=== PATIENT | female | born 1935 | race Caucasian/White ===

== ENCOUNTER 2016-11-24 16:24 | Observation (INO) | payer MEDICARE, OTHER ==
[~2016-11-24] VITALS: Ht 177.8 cm; Wt 64.2 kg
--- NOTE | ~2016-11-24 | CR72 ---
[facility] A Service of [facility] RADIOLOGY TEXT RESULTS PATIENT: SARAH KENNEDY LOCATION: [facility] 323- : 36 UNIT #: [id number] AGE: [address]: Adelso Milan MD SEX: F ORDER DR: [id number] [facility] [address] [place], [place] [address] [id number] I MR#: [id number] Acc #: [id number] NAME: SARAH KENNEDY : 1935 SEX: F STUDY DATE/TIME: 11/24/2016 17:52 UNIT: [address] ROOM: [facility] STUDY DESCRIPTION: CR Chest Single View Portable Attending Physician: Adelso Milan M.D. Ordering Physician: Nicola Schaefer M.D. Primary Care Physician: Rhonda Ivy M.D. MEDICAL IMAGING REPORT This report is preliminary unless electronic signature is present EXAM Portable chest HISTORY Chest pain today. FINDINGS Cardiac size near the upper limits of normal. Normal pulmonary vascularity. Mild right upper thoracic curve. Small calcified left hilar nodes and calcified granulomas in the left upper lung. Mild linear atelectasis or scarring in both bases. No airspace infiltrates. No pleural effusions. IMPRESSION No acute findings. Dictated by... Chaim Mendez M.D. THIS IS AN ELECTRONICALLY VERIFIED REPORT Chaim Mendez M.D. at 11/25/2016 11:42 PM DFL/df TD: 11/25/2016 08:06 JOB #: [id number] MEDICAL IMAGING REPORT Page 1 of 1 COPY
--- NOTE | ~2016-11-24 | TH ---
Unit #: [id number] #: [id number] Patient: SARAH KENNEDY [id number] [address] [address] [id number] I MR#: [id number] NAME: SARAH KENNEDY : 1935 SEX: F STUDY DATE/TIME: 11/25/2016 UNIT: C3A PCU ROOM: 323 STUDY DESCRIPTION: Lexiscan stress test - Nuclear Attending Physician: Adelso Milan M.D. Primary Care Physician: Rhonda Ivy M.D. CARDIOLOGY REPORT PROCEDURE PERFORMED Lexiscan Cardiolite stress test - Nuclear portion. PROCEDURE Using technetium 99m-labeled Cardiolite, rest and stress SPECT images were obtained. Multiple SPECT images were obtained in various views, including horizontal and vertical long axis and short axis views of the left ventricle. Images were obtained by gated SPECT method. The patient was administered 9.74 mCi of Cardiolite at rest. The patient was administered 29.4 mCi of Cardiolite after Lexiscan infusion was completed. On the stress images, there is normal perfusion noted. The rest images show normal perfusion. Comparing the rest and stress images, there is no stress-induced ischemia noted. The left ventricular ejection fraction is calculated to be 59%. There is no focal wall motion abnormality seen. CONCLUSION 1. No stress-induced ischemia noted. 2. The left ventricular ejection fraction is calculated to be 59%. 3. There is no focal wall motion abnormality seen. 4. Normal Lexiscan Cardiolite stress test. Dictated by... Molly Cedillo/fabi TD: 11/25/2016 16:04 JOB #: [id number] CARDIOLOGY REPORT Page 1 of 1 X Lindsey Samuels MD <ELECTRONICALLY SIGNED> 01/01/17 1524 CARDIOLOGY REPORT
--- NOTE | ~2016-11-24 | DS ---
Unit #: [id number] #: [id number] Patient: SARAH KENNEDY [id number] [address] [place], [place] [address] [id number] I MR#: [id number] NAME: SARAH KENNEDY ROOM: 323 Age: 81 Sex: F Admission Date: 11/24/2016 : 1935 Discharge Date: 11/25/2016 Attending Physician: Adelso Milan M.D. Primary Care Physician: Rhonda Ivy M.D. DISCHARGE SUMMARY SHORT-STAY SUMMARY HISTORY OF PRESENT ILLNESS This is an 81-year-old pleasant, elderly female who typically follows with Dr. Hurtado with [facility]. She reports a past medical history of hypertension, hyperlipidemia, and reportedly leaky valve, as well as some chronic back pain. The patient presented to the emergency room with complaints of left-sided chest pressure. She states she was in her typical state of health until yesterday afternoon about 3:30. She said she was sleepy. She got up and went to her bedroom but could not go to sleep; therefore, she got up to go read. At that time, she started to develop left-sided chest pressure she described as heaviness and pressure. She also states her vision became fuzzy, and she just did not feel right. She reports it was also associated with diaphoresis but denied any radiation of the pain to the arm, jaw, or down the arm and denied any nausea or vomiting. She thinks the episode lasted anywhere from 15 to 20 minutes, but the patient is unclear exactly on the timeframe. She has had no further episodes since. On arrival to the emergency room, EKG was performed which showed normal sinus rhythm, rate of 68 beats per minute, occasional PVCs, minimal voltage criteria for LVH, and QTc interval of 463 msec, with no acute ischemic changes noted. Point of care troponins have been negative. Chest x-ray was also performed which showed no active disease. At present, she is chest pain free. She denies any further complaints of heaviness or tightness. She is resting in bed comfortably. Her electrolytes have been reviewed and are within normal limits. Please note, the patient does state that she has undergone cardiac catheterization in the past, but I currently have no records available for review. She was told reportedly her prior caths were normal. PAST MEDICAL HISTORY 1. Hypertension. 2. Hyperlipidemia. 3. Questionable leaky valve per patient. 4. Chronic back pain. 5. Gastroesophageal reflux disease. PAST SURGICAL HISTORY 1. Tonsillectomy. 2. Prior heart cath, records currently not available for review. 3. Hysterectomy. Unit #: [id number] #: [id number] Patient: SARAH KENNEDY HOME MEDICATIONS 1. Metoprolol 25 mg p.o. daily. 2. Gabapentin 300 mg p.o. t.i.d. 3. Pantoprazole 40 mg p.o. daily. 4. Simvastatin 40 mg p.o. daily. 5. Aspirin 81 mg p.o. daily. ALLERGIES Tramadol. SOCIAL HISTORY The patient is . She lives with her . She is retired from [employer]. She does her own activities of daily living and cuts her own grass. She is a nonsmoker and denies illicit drugs or alcohol use. FAMILY HISTORY Questionable heart disease in her brother and blood clot in her father. REVIEW OF SYSTEMS Reviewed and otherwise negative except for what was stated above in the HPI. PHYSICAL EXAMINATION GENERAL: This is a pleasant 81-year-old female in no acute distress. VITAL SIGNS: Temperature 97.8, respiratory rate 16-18, pulse 67, and blood pressure 131/57. HEENT: Head is atraumatic and normocephalic. Pupils are equal and round. Mucous membranes are dry. NECK: Trachea is midline. No lymphadenopathy or thyromegaly. Carotid upstrokes are normal. CARDIOVASCULAR: S1 and S2. No obvious murmur, gallop, or rub. LUNGS: Clear to auscultation. No adventitious breath sounds, no rhonchi, no rales, no wheezes. ABDOMEN: Soft, nontender, and nondistended. Bowel sounds are present. EXTREMITIES: No clubbing, cyanosis, or edema. Pulses are palpable. NEUROLOGIC: Patient is awake, alert, and oriented. She moves extremities equally. She follows commands with ease. DIAGNOSTIC STUDIES LABORATORY: Sodium 140, potassium 4.2, chloride 104, CO2 of 30, BUN 11, creatinine 0.8, and glucose 101. Hemoglobin 12.1, hematocrit 35.3, WBC 4, and platelet count is 151,000. Troponins have been negative at less than 0.03. IMAGING: Chest x-ray showed cardiac size near the upper limits of normal. Normal pulmonary vascularity. Mild right upper thoracic curve. Small calcified left hilar nodes and calcified granulomas in the left upper lung. Mild linear atelectasis or scarring in both bases. No airspace infiltrates. No pleural effusions. No acute findings are noted. CARDIOLOGY: EKG shows normal sinus rhythm, rate of 68 beats per minute, occasional PVCs, minimal voltage criteria for LVH, and QTc interval of 463 msec, with no acute ischemic changes noted. IMPRESSION 1. Atypical chest tightness. 2. Hypertension. Unit #: [id number] #: [id number] Patient: SARAH KENNEDY 3. Hyperlipidemia. 4. Questionable leaky valve. 5. Chronic back pain. 6. Gastroesophageal reflux disease. PLAN The patient presented with complaints of chest pain. Most likely it is related to GERD and is atypical in nature. However, it is important to rule out any coronary artery disease as she does have risk factors for ischemic disease which include hypertension and hyperlipidemia. Thus far, her EKG has been normal, and her cardiac enzymes are negative. She will be kept n.p.o. We will schedule for Lexiscan Cardiolite today. Will also obtain any recent records from Dr. Hurtado who is her primary stenocaptioner. If her Cardiolite scan is negative, most likely she will be discharged later today and be advised to continue her proton pump inhibitor, as well as some p.r.n. sublingual nitroglycerin, and she should follow up with her primary stenocaptioner, Dr. Hurtado. The patient also will have a 2D echocardiogram to assess for any valvular abnormalities, as well as her left ventricular systolic function. HOSPITAL COURSE Patient underwent Lexiscan Cardiolite study today which showed no evidence of stress-induce ischemia and a normal LVEF. She does currently have a 2D echocardiogram which is pending. Her cardiac enzymes have been negative throughout her stay and her cardiac rhythm is stable. I did receive records from [facility]. The patient did have an echocardiogram back in July of this year which showed EF calculated at 64%. Mild concentric LVH. Normal diastolic filling pattern. Aortic valve leaflets were mildly thickened. Moderate to severe aortic regurgitation is noted, aortic valve trileaflet. Mild MR present and RVESP of 39 mmHg. Mild to moderate TR was also noted. Her current echo ordered here is pending. I have discussed the prior echocardiogram with Dr. Milan and he states that it is okay for her to be discharged home today. DISCHARGE MEDICATIONS There have been no changes in her medication regimen. She was already on pantoprazole daily for her GERD. Everything else will stay the same. FOLLOWUP The patient was advised to follow up with: 1. Her primary care physician in one to two weeks. 2. Her primary stenocaptioner in two weeks. She will follow with Dr. Hurtado. LMW/am TD: 11/25/2016 14:11 JOB #: [id number] Dictated by... Anamaria Roy A.P.R.N. for Adelso Milan M.D. LMW/cf Unit #: [id number] #: [id number] Patient: SARAH KENNEDY TD: 11/25/2016 15:51 JOB #: [id number] DISCHARGE SUMMARY Page 1 of 1 X Anamaria Roy APRN DISCHARGE SUMMARY
--- NOTE | ~2016-11-24 | EKG ---
PATIENT: SARAH KENNEDY UNIT #: [id number] Ventricular Rate: 68 BPM Atrial Rate: 68 BPM P-R Interval: 124 ms QRS Duration: 92 ms Q-T Interval: 436 ms QTC Calculation(Bezet): 463 ms P [place]: 44 degrees Calculated R [place]: 0 degrees Calculated T [place]: 64 degrees Diagnosis Line: Sinus rhythm with occasional Premature ventricular Diagnosis Line: complexes Diagnosis Line: Minimal voltage criteria for LVH, may be normal Diagnosis Line: variant Diagnosis Line: Borderline ECG Diagnosis Line: No previous ECGs available Diagnosis Line: Confirmed by LEONELA MARTIN MD ([id number]) on Diagnosis Line: 11/24/2016 9:49:13 PM INTERPRETING MD: PRADEEP
--- NOTE | ~2016-11-24 | EKG ---
PATIENT: SARAH KENNEDY UNIT #: [id number] Ventricular Rate: 66 BPM Atrial Rate: 66 BPM P-R Interval: 166 ms QRS Duration: 90 ms Q-T Interval: 426 ms QTC Calculation(Bezet): 446 ms P [place]: 50 degrees Calculated R [place]: -26 degrees Calculated T [place]: 50 degrees Diagnosis Line: Sinus rhythm with occasional Premature ventricular Diagnosis Line: complexes Diagnosis Line: Possible Left atrial enlargement Diagnosis Line: Borderline ECG Diagnosis Line: When compared with ECG of 24-NOV-2016 16:59, Diagnosis Line: No significant change was found Diagnosis Line: Confirmed by LEONELA MARTIN MD ([id number]) on Diagnosis Line: 11/25/2016 3:29:51 PM INTERPRETING MD: PRADEEP
--- NOTE | ~2016-11-24 | HP ---
Unit #: [id number] #: [id number] Patient: SARAH KENNEDY [id number] [address] [place], [place] [address] [id number] MR#: [id number] NAME: SARAH KENNEDY ROOM: 323 Age: 81 Sex: F Admission Date: 11/24/2016 : 1935 Attending Physician: Adelso Milan M.D. Primary Care Physician: Rhonda Ivy M.D. HISTORY AND PHYSICAL HISTORY OF PRESENT ILLNESS This is an 81-year-old pleasant, elderly female who typically follows with Dr. Hurtado with [facility]. She reports a past medical history of hypertension, hyperlipidemia, and reportedly leaky valve, as well as some chronic back pain. The patient presented to the emergency room with complaints of left-sided chest pressure. She states she was in her typical state of health until yesterday afternoon about 3:30. She said she was sleepy. She got up and went to her bedroom but could not go to sleep; therefore, she got up to go read. At that time, she started to develop left-sided chest pressure she described as heaviness and pressure. She also states her vision became fuzzy, and she just did not feel right. She reports it was also associated with diaphoresis but denied any radiation of the pain to the arm, jaw, or down the arm and denied any nausea or vomiting. She thinks the episode lasted anywhere from 15 to 20 minutes, but the patient is unclear exactly on the timeframe. She has had no further episodes since. On arrival to the emergency room, EKG was performed which showed normal sinus rhythm, rate of 68 beats per minute, occasional PVCs, minimal voltage criteria for LVH, and QTc interval of 463 msec, with no acute ischemic changes noted. Point of care troponins have been negative. Chest x-ray was also performed which showed no active disease. At present, she is chest pain free. She denies any further complaints of heaviness or tightness. She is resting in bed comfortably. Her electrolytes have been reviewed and are within normal limits. Please note, the patient does state that she has undergone cardiac catheterization in the past, but I currently have no records available for review. She was told reportedly her prior caths were normal. PAST MEDICAL HISTORY 1. Hypertension. 2. Hyperlipidemia. 3. Questionable leaky valve per patient. 4. Chronic back pain. 5. Gastroesophageal reflux disease. PAST SURGICAL HISTORY 1. Tonsillectomy. 2. Prior heart cath, records currently not available for review. 3. Hysterectomy. HOME MEDICATIONS 1. Metoprolol 25 mg p.o. daily. Unit #: [id number] #: [id number] Patient: SARAH KENNEDY 2. Gabapentin 300 mg p.o. t.i.d. 3. Pantoprazole 40 mg p.o. daily. 4. Simvastatin 40 mg p.o. daily. 5. Aspirin 81 mg p.o. daily. ALLERGIES Tramadol. SOCIAL HISTORY The patient is . She lives with her . She is retired from [employer]. She does her own activities of daily living and cuts her own grass. She is a nonsmoker and denies illicit drugs or alcohol use. FAMILY HISTORY Questionable heart disease in her brother and blood clot in her father. REVIEW OF SYSTEMS Reviewed and otherwise negative except for what was stated above in the HPI. PHYSICAL EXAMINATION GENERAL: This is a pleasant 81-year-old female in no acute distress. VITAL SIGNS: Temperature 97.8, respiratory rate 16-18, pulse 67, and blood pressure 131/57. HEENT: Head is atraumatic and normocephalic. Pupils are equal and round. Mucous membranes are dry. NECK: Trachea is midline. No lymphadenopathy or thyromegaly. Carotid upstrokes are normal. CARDIOVASCULAR: S1 and S2. No obvious murmur, gallop, or rub. LUNGS: Clear to auscultation. No adventitious breath sounds, no rhonchi, no rales, no wheezes. ABDOMEN: Soft, nontender, and nondistended. Bowel sounds are present. EXTREMITIES: No clubbing, cyanosis, or edema. Pulses are palpable. NEUROLOGIC: Patient is awake, alert, and oriented. She moves extremities equally. She follows commands with ease. DIAGNOSTIC STUDIES LABORATORY: Sodium 140, potassium 4.2, chloride 104, CO2 of 30, BUN 11, creatinine 0.8, and glucose 101. Hemoglobin 12.1, hematocrit 35.3, WBC 4, and platelet count is 151,000. Troponins have been negative at less than 0.03. IMAGING: Chest x-ray showed cardiac size near the upper limits of normal. Normal pulmonary vascularity. Mild right upper thoracic curve. Small calcified left hilar nodes and calcified granulomas in the left upper lung. Mild linear atelectasis or scarring in both bases. No airspace infiltrates. No pleural effusions. No acute findings are noted. CARDIOLOGY: EKG shows normal sinus rhythm, rate of 68 beats per minute, occasional PVCs, minimal voltage criteria for LVH, and QTc interval of 463 msec, with no acute ischemic changes noted. IMPRESSION 1. Atypical chest tightness. 2. Hypertension. 3. Hyperlipidemia. 4. Questionable leaky valve. Unit #: [id number] #: [id number] Patient: SARAH KENNEDY 5. Chronic back pain. 6. Gastroesophageal reflux disease. PLAN The patient presented with complaints of chest pain. Most likely it is related to GERD and is atypical in nature. However, it is important to rule out any coronary artery disease as she does have risk factors for ischemic disease which include hypertension and hyperlipidemia. Thus far, her EKG has been normal, and her cardiac enzymes are negative. She will be kept n.p.o. We will schedule for [facility] [employer] Cardiolite today. Will also obtain any recent records from Dr. Hurtado who is her primary hand dry cleaner. If her Cardiolite scan is negative, most likely she will be discharged later today and be advised to continue her proton pump inhibitor, as well as some p.r.n. sublingual nitroglycerin, and she should follow up with her primary hand dry cleaner, Dr. Hurtado. The patient also will have a 2D echocardiogram to assess for any valvular abnormalities, as well as her left ventricular systolic function. Dictated by Anamaria Roy A.P.R.N. for Molly Dorantes/makenna TD: 11/25/2016 14:11 JOB #: [id number] HISTORY AND PHYSICAL Page 1 of 1 X Anamaria Roy APRN HISTORY AND PHYSICAL
--- NOTE | ~2016-11-24 | ST ---
Unit #: [id number] #: [id number] Patient: SARAH KENNEDY [id number] [facility]. [address] [address] [id number] I MR#: [id number] NAME: SARAH KENNEDY : 1935 SEX: F STUDY DATE/TIME: 11/25/2016 UNIT: C3A PCU ROOM: 323 STUDY DESCRIPTION: Stress test Attending Physician: Adelso Milan M.D. Primary Care Physician: Rhonda Ivy M.D. CARDIOLOGY REPORT EXAM Stress test. REASON FOR EXAM Chest pain. PROCEDURE Baseline EKG shows sinus rhythm, occasional PVC. Next, 0.4 mg of Lexiscan was injected per protocol, followed by Cardiolite. During the test, the patient did complain of shortness of breath and headache. These symptoms resolved in the recovery period. She denied any complaints of chest pain. There were no ST-T wave changes noted suggestive of ischemia. There were occasional PVCs noted during the infusion, as well as in the recovery period. The test was stopped secondary to protocol completion. RESULTS 1. Negative EKG portion of Lexiscan Cardiolite. 2. No ST-T wave changes suggestive of ischemia. 3. Patient reported shortness of breath and headache during the infusion, but this resolved in the recovery period. Denied any complaints of chest pain. 4. There were frequent PVCs during the infusion, as well as in the recovery period. 5. Please correlate with nuclear images. Dictated by... Anamaria Roy A.P.R.N. for Lindsey Samuels M.D. LMW/db TD: 11/25/2016 12:07 JOB #: [id number] Unit #: [id number] #: [id number] Patient: SARAH KENNEDY CARDIOLOGY REPORT Page 1 of 1 X Anamaria Roy APRN CARDIOLOGY REPORT
[~2016-11-24 16:24] MED LIST: ACTONEL PO; ASPIRIN EC81 M1; ASPIRIN81 M1 PO; BACITRACIN-POLY15 GM; CALCIUM + D 6001 TA1 PO; CALCIUM1 TAB.CHEW; CERTAGEN PO; GABAPENTIN300 M2; HYCODAN60 ML 5MG/ PO; IMDUR-ER30 M1 PO; KEFLEX500 MG PO; METOPROLOL SUCC25 MG; MULTI-DAY VITAM1 TAB; NEURONTIN PO; OYSTER CALCIUM500 MG PO; PERCOCET 5-3251 TAB PO; PROTONIX PO; PROTONIX20 MG; RANEXA500 MG PO; SIMVASTATIN20 MG; TOPROL XL PO; ULTRAM PO; VIBRAMYCIN100 M1 PO; ZOCOR PO
[2016-11-24 17:02] LABS: POC - TROPONIN <0.05 ng/mL (<=0.05)
[2016-11-24 17:43] LABS: BASOPHIL% 0.7 % (0-2.5); EOSINOPHIL# 0.1 X10e3 (0-0.7); HEMATOCRIT 34.5 % (35.0-45.0); HEMOGLOBIN 11.8 gm/dL (12.0-16.0); LYMPHOCYTE# 1.9 X10e3 (1.0-3.5); LYMPHOCYTE% 40.9 % (17.0-45.0); MEAN CELL VOLUME 99.1 FL (83-96); MEAN CORPUSCULAR HEMOGLOBIN 33.8 PG (28-34); MEAN CORPUSCULAR HGB CONC 34.2 g/dL (30-36); MEAN PLATELET VOLUME 8.6 FL (6.5-11.5); MONOCYTE# 0.4 X10e3 (0-1.0); MONOCYTE% 8.6 % (3.0-12.0); NEUTROPHIL# 2.3 X10e3 (1.5-7.1); NEUTROPHIL% 47.8 % (40-75); PLATELET COUNT 159 X10e3 (140-420); RED BLOOD COUNT 3.48 X10e (3.90-5.30); RED CELL DISTRIBUTION WIDTH 12.7 % (11.0-15.5); WHITE BLOOD COUNT 4.7 X10e3 (4.0-10.5)
[2016-11-24 17:44] LABS: DIFF IND NO
[2016-11-24 17:55] LABS: INR 1.1; PARTIAL THROMBOPLASTIN TIME 26.9 SECONDS (23.5-31.3); PROTHROMBIN TIME (PATIENT) 11.4 SECONDS (10.0-11.7)
[2016-11-24 18:21] LABS: ALBUMIN SERUM 3.7 g/dL (3.5-5.0); ALKALINE PHOSPHATASE 57 U/L (32-92); ALT (SGPT) 13 U/L (10-40); AST (SGOT) 18 U/L (10-42); BILIRUBIN,TOTAL 0.3 mg/dL (0.2-2.0); BLOOD UREA NITROGEN 12 mg/dL (9-23); CARBON DIOXIDE 25 mmol/L (22-31); CHLORIDE 103 mmol/L (100-111); CREATININE SERUM 0.6 mg/dL (0.6-1.4); GLOM FILT RATE Estimated 86.1 mL/min (>60); GLUCOSE FASTING 82 mg/dL (70-110); POTASSIUM 3.4 mmol/L (3.5-5.1); SODIUM 134 mmol/L (135-145)
[2016-11-24 18:23] LABS: BILIRUBIN, DIRECT <0.1 mg/dL (0.0-0.2); BILIRUBIN,INDIRECT 0.2 mg/dL (0.0-0.9)
[2016-11-24] MEDS ORDERED: METOPROLOL SUCC25 MG PO (18:46)
[2016-11-24] MEDS ORDERED: PROTONIX PO (18:46)
[2016-11-24] MEDS ORDERED: GABAPENTIN300 M2 PO (18:46)
[2016-11-24] MEDS ORDERED: PERCOCET5/325 PO (18:47)
[2016-11-24] MEDS ORDERED: ASPIRIN81 M2 PO (18:47)
[2016-11-24] MEDS ORDERED: SIMVASTATIN40 MG PO (18:47)
[2016-11-24 18:57] LABS: POC - CKMB <1.0 ng/mL (0.0-7.9); POC - TROPONIN <0.05 ng/mL (<=0.05)
[2016-11-25 04:58] LABS: HEMATOCRIT 35.3 % (35.0-45.0); HEMOGLOBIN 12.1 gm/dL (12.0-16.0); MEAN CELL VOLUME 98.2 FL (83-96); MEAN CORPUSCULAR HEMOGLOBIN 33.7 PG (28-34); MEAN CORPUSCULAR HGB CONC 34.4 g/dL (30-36); MEAN PLATELET VOLUME 8.1 FL (6.5-11.5); RED BLOOD COUNT 3.59 X10e (3.90-5.30); RED CELL DISTRIBUTION WIDTH 12.9 % (11.0-15.5)
[2016-11-25 06:09] LABS: BUN/CREATININE RATIO 13.75; CALCIUM SERUM 8.5 mg/dL (8.4-10.2); CREATININE SERUM 0.8 mg/dL (0.6-1.4); GLOM FILT RATE Estimated 69.7 mL/min (>60); POTASSIUM 4.2 mmol/L (3.5-5.1)
== END 2016-11-25 15:49 | disposition home or self-care (01) ==
LOC: CED 16:24 → CEDOF 18:30 → C3A PCU 18:30 → CEDOF 19:12 → C3A PCU 19:12 → CED 19:12 → C3A PCU 19:53 → CEDOF 19:53 → C3A PCU 19:53
PROVIDERS: Emergency Medicine; Family Medicine
DX: R07.89 Other chest pain (principal); I10 Essential (primary) hypertension; I51.7 Cardiomegaly; E78.5 Hyperlipidemia, unspecified; G89.29 Other chronic pain; M54.9 Dorsalgia, unspecified; K21.9 Gastro-esophageal reflux disease without esophagitis; Z79.82 Long term (current) use of aspirin; Z79.899 Other long term (current) drug therapy; Z88.8 Allergy status to other drugs, medicaments and biological substances
CPT/HCPCS: 36415; 71010; 78452; 80048; 80061; 80076; 82553; 84484; 85025; 85027; 85610; 85730; 93005; 93017; 93306; 96372; 99285; A9500; G0378; J1650; J2785